=== PATIENT | female | born 1985 | race Caucasian/White ===

== ENCOUNTER 2022-05-20 08:09 | Outpatient (CLI) | payer OTHER, SELFPAY | END 2022-05-20 08:10 | disposition home or self-care (01) | DX: Z53.9 Procedure and treatment not carried out, unspecified reason (principal) | CPT/HCPCS: 36415; 84132; 99001 ==

== ENCOUNTER 2024-05-30 09:35 | Outpatient (CLI) | payer OTHER, SELFPAY ==
--- NOTE | 2024-05-30 09:45 | CRLHL7_ITS ---
For Patients: As a result of the Century Cures Act, medical imaging exams and procedure reports are released immediately into your electronic medical record. You may view this report before your referring provider. If you have questions, please contact your health care provider. BILATERAL SCREENING MAMMOGRAM WITH COMPUTER-AIDED DETECTION AND TOMOSYNTHESIS TECHNIQUE: CC and MLO views were obtained. These mammographic images have been obtained using full-field digital technique. These mammographic images were interpreted with the benefit of computer-aided detection. Breast Tomosynthesis was used in this interpretation. COMPARISON FILM: Baseline. FINDINGS: The breasts are heterogeneously dense, which may obscure small masses. IMPRESSION: There is no radiographic evidence for malignancy. ASSESSMENT: BI-RADS Category 1: Negative RECOMMENDATION: Routine screening mammogram in 1 year. A lay language report of this examination will be provided to the patient. Julito Gorman M.D. Diagnostic Radiologist [email or web address] SP/Dictated by: Julito Gorman MD @ 05/31/2024 11:30:00 AM (Electronically Signed)
== END 2024-05-30 09:36 | disposition home or self-care (01) ==
LOC: MAMMO 09:36
PROVIDERS: Visit Provider Physician Assistant
DX: Z12.31 Encounter for screening mammogram for malignant neoplasm of breast (principal); R92.333 Mammographic heterogeneous density, bilateral breasts
CPT/HCPCS: 77063; 77067

== ENCOUNTER 2025-01-22 15:17 | Outpatient (CLI) | payer OTHER, SELFPAY ==
[2025-01-25 04:34] LABS: HPV Source Cervix
[2025-02-04 15:50] LABS: Pap Test Digital Imaging Done; Pap Test Reviewed by Pathologi Done
== END 2025-01-22 15:18 | disposition home or self-care (01) ==
PROVIDERS: Visit Provider Physician Assistant
DX: Z30.433 Encounter for removal and reinsertion of intrauterine contraceptive device (principal)
CPT/HCPCS: 87624; 87625; 88141; 88142; 88175